=== PATIENT | female | born 1990 | race African-American/Black ===

== ENCOUNTER 2020-09-19 13:35 | Emergency (ER) | payer OTHER, MEDICARE ==
[~2020-09-19] VITALS: Ht 167.6 cm; Wt 122.0 kg
[2020-09-19 14:53] VITALS: BP 118/67
== END 2020-09-19 15:23 | disposition home or self-care (01) ==
LOC: ER 13:35
DX: Z13.9 Encounter for screening, unspecified (principal); R94.31 Abnormal electrocardiogram [ECG] [EKG]
CPT/HCPCS: 93005; 99283